=== PATIENT | male | born 1990 | race Caucasian/White ===

== ENCOUNTER → 2018-06-15 | Outpatient (CLI) | payer OTHER ==
--- NOTE | 2018-06-15 09:35 | MR ---
EXAMINATION TYPE: MR knee LT wo con DATE OF EXAM: 06/15/2018 COMPARISON: 08/04/2010 HISTORY: Left knee pain TECHNIQUE: Multiplanar, multisequence imaging of the left knee is performed without IV contrast. FINDINGS: MEDIAL MENISCUS: Anterior and posterior horns are intact without tear. LATERAL MENISCUS: Anterior and posterior horns are intact without tear. CRUCIATE LIGAMENTS: The anterior and posterior cruciate ligaments are intact and unremarkable. COLLATERAL LIGAMENTS: The medial collateral ligament and lateral collateral ligament complex are inta ct and unremarkable. EXTENSOR MECHANISM: Visualized quadriceps and patellar tendons are intact. EFFUSION: No significant suprapatellar joint effusion. POPLITEAL CYST: No popliteal/grewal cyst. TRICOMPARTMENT SPACES: Joint spaces preserved no evidence of significant arthritic changes. Visualize d cartilage is intact. BONE MARROW SIGNAL: No focal abnormal marrow signal is appreciated. OTHER: No additional significant abnormality is appreciated. IMPRESSION: 1. No acute process.
== END | disposition home or self-care (01) ==
LOC: RADMRIMAIN 06:08
PROVIDERS: ATTEND Orthopaedic Surgery
DX: M25.562 Pain in left knee (principal)

== ENCOUNTER → 2019-02-07 | Emergency (ER) | payer OTHER | LOC: EC 12:51 | DX: R00.0 Tachycardia, unspecified (principal); R06.02 Shortness of breath; Z53.21 Procedure and treatment not carried out due to patient leaving prior to being seen by health care provider | CPT/HCPCS: 93005; 99499 ==

== ENCOUNTER 2019-05-20 16:45 | Emergency (ER) | payer OTHER ==
[2019-05-20 17:28] VITALS: TEMP 98.1
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
[2019-05-20] MEDS ORDERED: KETOROLAC 60 MG/2 ML VIAL IM STA (20:02)
[2019-05-20 20:28] VITALS: BP 131/90; PULSE 66; RESP 16
== END 2019-05-20 20:28 | disposition home or self-care (01) ==
LOC: EC 16:45
DX: M54.2 Cervicalgia (principal); M54.6 Pain in thoracic spine; R51 Headache; F17.200 Nicotine dependence, unspecified, uncomplicated; V43.62XA Car passenger injured in collision with other type car in traffic accident, initial encounter; Y92.410 Unspecified street and highway as the place of occurrence of the external cause; Z53.20 Procedure and treatment not carried out because of patient's decision for unspecified reasons
CPT/HCPCS: 70450; 71046; 72125; 99284

== ENCOUNTER 2021-05-14 21:15 | Emergency (ER) | payer OTHER ==
[2021-05-14 21:34] VITALS: RESP 18; TEMP 98.2
[2021-05-14 22:47] LABS: ALT 26 U/L (4-49); AST 33 U/L (17-59); African American GFR (CKD) >90 (>60 ml/min/1.73 sqM); Albumin 4.5 g/dL (3.5-5.0); Alkaline Phosphatase 82 U/L (38-126); Anion Gap 11 mmol/L; Blood Urea Nitrogen 20 mg/dL (9-20); Calcium 9.6 mg/dL (8.4-10.2); Carbon Dioxide 22 mmol/L (22-30); Chloride 109 mmol/L (98-107); Glucose 102 mg/dL (74-99); Lipase 128 U/L (23-300); Non-African American GFR(CKD) >90 (>60 ml/min/1.73 sqM); Sodium 142 mmol/L (137-145); Total Bilirubin 0.2 mg/dL (0.2-1.3); Total Protein 7.3 g/dL (6.3-8.2)
[2021-05-14 22:58] LABS: Appearance,Urine Clear (Clear); Bilirubin,Urine Negative (Negative); Blood,Urine Negative (Negative); Color,Urine Yellow; Glucose,Urine (UA) Negative (Negative); Ketones,Urine Negative (Negative); Leukocyte Esterase,Urine Negative (Negative); Nitrite,Urine Negative (Negative); PH, Urine 5.5 (5.0-8.0); Protein,Urine Negative (Negative); Specific Gravity,Urine 1.029 (1.001-1.035); Urobilinogen,Urine <2.0 mg/dL (<2.0)
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
[2021-05-14 23:18] LABS: Basophils # (A) 0.1 k/uL (0-0.2); Basophils % (A) 1 %; Eosinophils # (A) 0.6 k/uL (0-0.7); Eosinophils % (A) 5 %; HCT 48.3 % (39.0-53.0); HGB 16.5 gm/dL (13.0-17.5); Lymphocytes # (A) 4.1 k/uL (1.0-4.8); Lymphocytes % (A) 29 %; MCH 28.5 pg (25.0-35.0); MCHC 34.2 g/dL (31.0-37.0); MCV 83.4 fL (80.0-100.0); Mean Platelet Volume 8.2; Monocytes # (A) 0.8 k/uL (0-1.0); Monocytes % (A) 6 %; Neutrophils % (A) 58 %; Platelet Count 218 k/uL (150-450); RBC 5.79 m/uL (4.30-5.90); RDW 13.5 % (11.5-15.5); WBC 13.9 k/uL (3.8-10.6)
[2021-05-14 23:23] LABS: Potassium 4.4 mmol/L (3.5-5.1)
[2021-05-14 23:29] LABS: Amylase 58 U/L (30-110)
--- NOTE | 2021-05-15 00:12 | ED ---
Abdominal Pain HPI - General Chief Complaint: Abdominal Pain Stated Complaint: abd pain Time Seen by Provider: 05/14/21 21:38 Source: patient Mode of arrival: ambulatory - History of Present Illness MD Complaint: abdominal pain Onset/Timin -: hour(s) Location: periumbilical Radiation: none Migration to: no migration Severity: moderate Quality: aching Consistency: constant Improves With: nothing Worsens With: nothing Associated Symptoms: nausea - Related Data Home Medications Medication Instructions Recorded Confirmed Cinnamon Bark [Cinnamon] 500 mg PO DAILY 05/14/21 05/14/21 Multivitamins, Thera [Multivitamin 1 tab PO DAILY 05/14/21 05/14/21 (formulary)] Niacin 500 mg PO DAILY 05/14/21 05/14/21 Previous Rx's Medication Instructions Recorded Acetaminophen-Codeine 300-30mg 1 tab PO Q4H PRN #16 tablet 05/15/21 [Tylenol w/codeine #3] Amoxicillin/Potassium Clav 1 tab PO Q12HR 1 Days #14 tab 05/15/21 [Augmentin 875-125 Tablet] Allergies Allergy/AdvReac Type Severity Reaction Status Date / Time No Known Allergies Allergy Verified 05/14/21 21:54 Review of Systems ROS Statement: Those systems with pertinent positive or pertinent negative responses have been documented in the HPI. ROS Other: All systems not noted in ROS Statement are negative. Constitutional: Denies: fever, chills Respiratory: Denies: cough, dyspnea Cardiovascular: Denies: chest pain, palpitations Gastrointestinal: Reports: abdominal pain, nausea. Denies: vomiting, diarrhea, constipation, melena, hematochezia Genitourinary: Denies: dysuria, frequency, hematuria, testicular pain, testicular mass Musculoskeletal: Denies: back pain Skin: Denies: rash Neurological: Denies: headache, weakness Past Medical History Past Medical History: No Reported History History of Any Multi-Drug Resistant Organisms: None Reported Past Surgical History: Orthopedic Surgery Additional Past Surgical History / Comment(s): kidney stones with lithotripsy Past Psychological History: No Psychological Hx Reported Smoking Status: Current every day smoker Past Alcohol Use History: Rare Past Drug Use History: None Reported Course Vital Signs 05/14/21 21:30 Temperature 98.2 F Pulse Rate 79 Respiratory 18 Rate Blood Pressure 102/67 O2 Sat by Pulse 98 Oximetry Medical Decision Making - Lab Data Result diagrams: 05/14/21 22:27 05/14/21 22:27 Lab Results 05/14/21 05/14/21 05/14/21 Range/Units 22:27 22:27 22:27 WBC 13.9 H (3.8-10.6) k/uL RBC 5.79 (4.30-5.90) m/uL Hgb 16.5 (13.0-17.5) gm/dL Hct 48.3 (39.0-53.0) % MCV 83.4 (80.0-100.0) fL MCH 28.5 (25.0-35.0) pg MCHC 34.2 (31.0-37.0) g/dL RDW 13.5 (11.5-15.5) % Plt Count 218 (150-450) k/uL MPV 8.2 Neutrophils % 58 % Lymphocytes % 29 % Monocytes % 6 % Eosinophils % 5 % Basophils % 1 % Neutrophils # 8.0 H (1.3-7.7) k/uL Lymphocytes # 4.1 (1.0-4.8) k/uL Monocytes # 0.8 (0-1.0) k/uL Eosinophils # 0.6 (0-0.7) k/uL Basophils # 0.1 (0-0.2) k/uL Sodium 142 (137-145) mmol/L Potassium 4.4 (3.5-5.1) mmol/L Chloride 109 H (98-107) mmol/L Carbon Dioxide 22 (22-30) mmol/L Anion Gap 11 mmol/L BUN 20 (9-20) mg/dL Creatinine 0.68 (0.66-1.25) mg/dL Est GFR (CKD-EPI)AfAm >90 (>60 ml/min/1.73 sqM) Est GFR (CKD-EPI)NonAf >90 (>60 ml/min/1.73 sqM) Glucose 102 H (74-99) mg/dL Calcium 9.6 (8.4-10.2) mg/dL Total Bilirubin 0.2 (0.2-1.3) mg/dL AST 33 (17-59) U/L ALT 26 (4-49) U/L Alkaline Phosphatase 82 (38-126) U/L Total Protein 7.3 (6.3-8.2) g/dL Albumin 4.5 (3.5-5.0) g/dL Amylase 58 (30-110) U/L Lipase 128 (23-300) U/L Urine Color Yellow Urine Appearance Clear (Clear) Urine pH 5.5 (5.0-8.0) Ur Specific [place] 1.029 (1.001-1.035) Urine Protein Negative (Negative) Urine Glucose (UA) Negative (Negative) Urine Ketones Negative (Negative) Urine Blood Negative (Negative) Urine Nitrite Negative (Negative) Urine Bilirubin Negative (Negative) Urine Urobilinogen <2.0 (<2.0) mg/dL Ur Leukocyte Esterase Negative (Negative) Disposition Clinical Impression: Abdominal pain Disposition: HOME SELF-CARE Condition: Good Instructions (If sedation given, give patient instructions): Umbilical Hernia (ED), Abdominal Pain (ED) Additional Instructions: As we discussed, there is some fluid in the pelvis that is concerning. If you are not feeling well by tomorrow, you should have your abdomen rechecked. Return immediately if you develop any of the symptoms that we discussed or worse in any way. If you continue to feel better be certain to finish the course of antibiotics and follow-up as we discussed. Prescriptions: Amoxicillin/Potassium Clav [Augmentin 875-125 Tablet] 1 tab PO Q12HR 1 Days #14 tab Acetaminophen-Codeine 300-30mg [Tylenol w/codeine #3] 1 tab PO Q4H PRN #16 tablet PRN Reason: Pain Is patient prescribed a controlled substance at d/c from ED?: Yes When asked, does pt state using other controlled substances?: No If prescribed controlled substance>3 days was MAPS reviewed?: Prescribed <3 Days If opioid is for acute pain is fill amount 7 days or less?: Yes If Rx opioid, was Start Talking consent form obtained?: Yes Referrals: Lisbet Tapia MD [Primary Care Provider] - 1-2 days Arpita Ryder DO [Doctor of Osteopathic Medicine] - 1-2 days
[2021-05-15] MEDS ORDERED: AMPICILLIN-SULBACTAM 3 GM in SODIUM CHLORIDE 0.9% 100 ML IVPB STA (00:13)
[2021-05-15 01:08] VITALS: BP 109/71; PULSE 76
== END 2021-05-15 01:04 | disposition home or self-care (01) ==
LOC: EC 21:15
DX: R10.33 Periumbilical pain (principal); R11.0 Nausea; F17.200 Nicotine dependence, unspecified, uncomplicated
CPT/HCPCS: 36415; 80053; 82150; 83690; 85025; 81003; 74176; 99284; 96365; J0295

== ENCOUNTER 2023-12-08 14:15 | Day surgery (SDC) | payer OTHER ==
[2023-12-06 14:18] VITALS: BMI 35.5
[2023-12-08] MEDS: LACTATED RINGERS 1,000 ML IV SCH (14:30)
[2023-12-08 14:44] VITALS: TEMP 97.5
[2023-12-08] MEDS ORDERED: PROPOFOL 10 MG/ML 20 ML VIAL IV ONE (15:11)
[2023-12-08] MEDS ORDERED: LIDOCAINE 1% INJ 10MG/ML (20 ML MDV) ONE (15:11)
--- NOTE | 2023-12-08 15:24 | P.PCN ---
Date of Procedure: 12/08/23 Procedure(s) Performed: BRIEF HISTORY: Patient is a 33-year-old, pleasant, white male scheduled for an upper endoscopy as a part of evaluation of long-standing history of GERD for the last 15 years duration. Lately has been having intermittent left upper quadrant abdominal pain. He remains on omeprazole 20 mg daily.. PROCEDURE PERFORMED: Esophagogastroduodenoscopy. With biopsy PREOPERATIVE DIAGNOSIS: GERD and intermittent left upper quadrant abdominal pain. IV sedation per anesthesia. PROCEDURE: After informed consent was obtained, the patient was brought into the endoscopy unit. IV sedation was administered by Anesthesia under continuous monitoring. Initially the Olympus GIF-140 video endoscope was inserted into the mouth. Esophagus intubated without any difficulty. It was gradually advanced into the stomach and duodenum and carefully examined. The bulb and the second part of the duodenum appeared normal. The scope at this time was withdrawn to the stomach, adequately insufflated with air, and upon careful examination, mucosa of the antrum, body, cardia and the fundus appeared normal. The scope was then withdrawn into the esophagus. Small hiatal hernia noted. The GE junction was located at 44 cm from the incisors. The distal esophageal stricture identified. A very few erosions in the distal esophagus consistent with LA grade B reflux esophagitis. Also there was a 3 mm island of Mejia's-appearing mucosa in the distal esophagus which was biopsied. The rest of the esophagus appeared normal and the patient tolerated the procedure well. IMPRESSION: 1. Small hiatal hernia. 2. Early distal esophageal stricture 3. Erosions in the distal esophagus consistent with LA grade B reflux esophagitis and questionable short segment Mejia's esophagus. RECOMMENDATIONS: The findings of this examination were discussed with the patient as well as his family. Follow with the biopsy results. He was advised to increase omeprazole to 20 mg twice daily for 3 months and then decrease it to once daily as a maintenance dose.. He was educated about antireflux measures.
[2023-12-08 15:58] VITALS: BP 145/83; PULSE 83; RESP 17
== END 2023-12-08 15:58 | disposition home or self-care (01) ==
LOC: ORWHC2ENDO 14:15
PROVIDERS: ATTEND Internal Medicine Gastroenterology
DX: K21.00 Gastro-esophageal reflux disease with esophagitis, without bleeding (principal); K44.9 Diaphragmatic hernia without obstruction or gangrene; K22.2 Esophageal obstruction; F17.210 Nicotine dependence, cigarettes, uncomplicated; Z79.899 Other long term (current) drug therapy; Z88.8 Allergy status to other drugs, medicaments and biological substances
CPT/HCPCS: 88305; 43239; J2001; J2704

== ENCOUNTER 2024-12-02 05:46 | Day surgery (SDC) | payer OTHER ==
[2024-11-28 10:48] VITALS: BMI 34.2
[~2024-12-02 05:46] MED LIST: LIDOCAINE 1% (10MG/ML) FOR IV START INTRADERMA PRN
[2024-12-02 06:20] VITALS: TEMP 97.3
[2024-12-02] MEDS: IV FLUID CONTINUATION 1,000 ML IV ONE ×2 (06:28→08:56)
[2024-12-02] MEDS: LACTATED RINGERS 1,000 ML IV SCH (06:28)
[2024-12-02] MEDS: ACETAMINOPHEN TAB 500 MG TAB PO PRN (06:51)
[2024-12-02] MEDS: ONDANSETRON 4 MG/2 ML VIAL IVP ONE (06:51)
[2024-12-02] MEDS: MIDAZOLAM 2 MG/2 ML VIAL IV ONE (06:58)
[2024-12-02] MEDS: HEPARIN SODIUM,PORCINE 5,000 UNIT/ML 1 ML VIAL SQ PRN (07:14)
--- NOTE | 2024-12-02 07:15 | P.ANPRN ---
Procedure Note - Anesthesia - Nerve Block Performed Bilateral Erector Spinae Single Time Out Performed: Yes Date of Procedure: 12/02/24 Procedure Start Time: 07:00 Procedure Stop Time: 07:05 Location of Patient: PreOp Indication: Acute Post-Operative Pain, Analgesia, Requested by Surgeon Sedation Type: Sedate with meaningful contact maintained Preparation: Sterile Prep Position: Prone Catheter: None Needle Types: Pajunk Needle Gauge: 21 Ultrasound used to visualize needle placement: Yes Ultrasound used to observe medication spread: Yes Injectate: 0.5% Ropivacaine (see comment for volume) (Ropiv 20ml, Needle level I12---Hnig side) Blood Aspirated: No Pain Paresthesia on Injection Noted: No Resistance on Injection: Normal Image Stored and Saved: Yes Events: Uneventful and Well Tolerated
[2024-12-02] MEDS ORDERED: PROPOFOL 10 MG/ML 20 ML VIAL IV ONE (07:27)
[2024-12-02] MEDS ORDERED: HYDROmorphone (PF) 1 MG/ML ONE (07:27)
[2024-12-02] MEDS ORDERED: ROCURONIUM 10 MG/ML (5 ML VIAL) IV ONE (07:27)
[2024-12-02] MEDS ORDERED: GLYCOPYRROLATE 0.2 MG/ML 2 ML VIAL ONE (07:27)
[2024-12-02] MEDS ORDERED: LIDOCAINE 4% LTA KIT (4 ML) TOPICAL ONE (07:27)
[2024-12-02] MEDS ORDERED: NEOSTIGMINE 1 MG/ML 10 ML VIAL ONE (07:27)
[2024-12-02] MEDS ORDERED: LIDOCAINE 1% INJ 10MG/ML (20 ML MDV) ONE (07:27)
[2024-12-02] MEDS ORDERED: SUCCINYLCHOLINE CHLORIDE 200 MG/10 ML VIAL IV ONE (07:27)
[2024-12-02] MEDS ORDERED: ROPIVACAINE 5 MG/ML 30 ML VIAL ONE (07:27)
[2024-12-02] MEDS ORDERED: MIDAZOLAM 2 MG/2 ML VIAL ONE (07:27)
[2024-12-02] MEDS ORDERED: fentaNYL (PF) 50 MCG/ML 2 ML AMP ONE (07:27)
--- NOTE | 2024-12-02 07:33 | P.HPADDEND ---
H&P Addendum H&P Addendum Date: 12/02/24 Please refer to recent history and physical from the office. Patient did come to the ER apparently last week with some pain. Had a portion of the hernia reduced and he was discharged home comfortably. No change in bowel habits. No nausea or vomiting. States he quit smoking.
[2024-12-02] MEDS: BUPIVACAINE (PF) 0.25% 30 ML VIAL SQ ONE ×3 (07:54→07:59)
[2024-12-02 09:14] VITALS: RESP 16
--- NOTE | 2024-12-02 09:18 | P.OP ---
Date of Procedure: 12/02/24 Procedure(s) Performed: PREOPERATIVE DIAGNOSIS: Incarcerated umbilical hernia POSTOPERATIVE DIAGNOSIS: Same PROCEDURE: Open repair incarcerated umbilical hernia with mesh SURGEON: Dr. Norris ANESTHESIA: General EBL: 25 cc OPERATIVE PROCEDURE DETAILS: The patient was placed in the operating table in the supine position. A curvilinear supraumbilical incision was made using the scalpel. The subcutaneous tissues were dissected bluntly and with cautery. The hernia sac was identified. The umbilical attachments to the fascia were divided using electrocautery. The hernia sac was excised. The defect in the peritoneum was closed using a running locking 2-0 Vicryl stitch. The defect in the fascia measured 3.5 x 1.5 cm. The fat overlying the fascia was dissected. A second defect measuring 3 mm in size was identified in the midline superiorly. This was closed using a [id number] 0 Ethibond stitch. Our preperitoneal mesh just covered at that location. No additional defects were seen. The preperitoneal space was then dissected using blunt dissection and electrocautery. The 6.4 cm ventral ex mesh was placed beneath the fascia and sutured in place using trans-fascial 0 Ethibond sutures. The defect was closed using interrupted vest over pants 0 Ethibond mattress sutures. The subcutaneous tissues were reapproximated using inverted 2-0 & 3-0 Vicryl sutures. The umbilicus was tacked back down to the fascia using a 2-0 Vicryl suture. The skin was closed using 4-0 Monocryl sutures. Skin glue and sterile dressings were then applied. HERNIA CHARACTERISTICS: Length: 1.5 cm Width: 3.5 cm Type: Incarcerated umbilical TYPE OF MESH USED: 6.4 cm Ventralex LOCATION OF MESH: Sublay FIXATION: 0 Ethibond PREOPERATIVE DISCUSSION ON SMOKING CESSASTION: Yes PREOPERATIVE DISCUSSION ON MORBID OBESITY: Yes PREOPERATIVE DISCUSSION ON APPROPRIATE USE OF NARCOTIC USE: Yes PREOPERATIVE EDUCATION: Multi Modal, Smoking Cessation and Weight Loss with BMI over 35. DISPOSITION: Stable to recovery room
[2024-12-02] MEDS: HYDROmorphone 0.5 MG/0.5 ML SYRINGE IVP PRN (09:35)
[2024-12-02] MEDS: hydrALAZINE HCL 20 MG/ML 1 ML VIAL IVP STA (09:48)
[2024-12-02] MEDS: fentaNYL (PF) 50 MCG/ML 2 ML AMP IVP STA (10:08)
[2024-12-02] MEDS: METOPROLOL TARTRATE 5 MG/5 ML VIAL IVP STA (10:24)
[2024-12-02 11:16] VITALS: BP 131/82; PULSE 98
[2024-12-02] MEDS ORDERED: IBUPROFEN 600 MG TAB PO SCH (12:15)
[2024-12-02] MEDS ORDERED: ACETAMINOPHEN TAB 325 MG TAB PO SCH (14:15)
== END 2024-12-02 12:05 | disposition home or self-care (01) ==
LOC: OR 05:46
PROVIDERS: ATTEND Surgery
DX: K42.0 Umbilical hernia with obstruction, without gangrene (principal); K21.9 Gastro-esophageal reflux disease without esophagitis; F41.9 Anxiety disorder, unspecified; R00.2 Palpitations; Z87.891 Personal history of nicotine dependence; Z89.522 Acquired absence of left knee; Z89.232 Acquired absence of left shoulder; Z88.8 Allergy status to other drugs, medicaments and biological substances; Z79.899 Other long term (current) drug therapy
CPT/HCPCS: 64999; 49592; C1781; J2250; J0330; J0360; J1644; J2710; J0690; J2405; J2003; J3010; J1171 ×2; J2795; J2704; J0665; J1596; 88302

== ENCOUNTER 2025-01-06 07:20 | Emergency (ER) | payer OTHER ==
[2025-01-06 07:31] VITALS: BP 118/78; PULSE 101; RESP 18; TEMP 97.9
--- NOTE | 2025-01-06 07:39 | ED ---
General Adult HPI - General Chief complaint: Upper Respiratory Infection Stated complaint: Swelling in throat Time Seen by Provider: 01/06/25 07:21 Source: patient, RN notes reviewed, old records reviewed Mode of arrival: ambulatory Limitations: no limitations - History of Present Illness Initial comments: 34-year-old male presenting for evaluation of sore throat, productive cough. Symptoms began 2 days prior. He has had myalgia and subjective fever and chills. Patient otherwise healthy. No vomiting or diarrhea. - Related Data Home Medications Medication Instructions Recorded Confirmed Multivit-Mins/Iron/Folic/Lycop 1 tab PO DAILY 11/24/24 12/02/24 [Centrum Men's Tablet] Omeprazole Magnesium [PriLOSEC OTC] 20 mg PO DAILY PRN 11/24/24 12/02/24 Escitalopram [Lexapro] 10 mg PO DAILY 11/28/24 12/02/24 Previous Rx's Medication Instructions Recorded oxyCODONE HCL [OxyIR] 5 mg PO Q6H PRN 3 Days #6 tab 12/02/24 Albuterol Inhaler [Ventolin Hfa 1 - 2 puff INHALATION Q4HR PRN #1 01/06/25 Inhaler] each Allergies Allergy/AdvReac Type Severity Reaction Status Date / Time dexamethasone Allergy Severe affected Verified 01/06/25 07:30 muscles-felt like he had some paralysis Review of Systems ROS Statement: Those systems with pertinent positive or pertinent negative responses have been documented in the HPI. ROS Other: All systems not noted in ROS Statement are negative. 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 Past Anesthesia/Blood Transfusion Reactions: No Reported Reaction Past Psychological History: No Psychological Hx Reported Smoking Status: Current every day smoker Past Alcohol Use History: None Reported Past Drug Use History: None Reported - Past Family History Mother Additional Family Medical History / Comment(s): breast cancer General Exam Limitations: no limitations General appearance: alert, in no apparent distress Head exam: Present: atraumatic, normocephalic Eye exam: Present: normal appearance, PERRL ENT exam: Present: normal exam. Absent: normal oropharynx (Pharyngeal erythema and bilateral tonsillar swelling) Respiratory exam: Present: wheezes. Absent: respiratory distress, rhonchi, accessory muscle use, decreased breath sounds Cardiovascular Exam: Present: regular rate, normal rhythm GI/Abdominal exam: Present: soft. Absent: distended, tenderness Neurological exam: Present: alert, oriented X3 Psychiatric exam: Present: normal affect, normal mood Skin exam: Present: warm, dry, intact Course Vital Signs 01/06/25 07:27 Temperature 97.9 F Pulse Rate 101 H Respiratory 18 Rate Blood Pressure 118/78 O2 Sat by Pulse 95 Oximetry Medical Decision Making - Medical Decision Making Was pt. sent in by a medical professional or institution (, TAMIA, CONSERVATION AGENT, urgent care, hospital, or alf...) When possible be specific @ -No Did you speak to anyone other than the patient for history (EMS, parent, family, police, friend...)? What history was obtained from this source @ -No Did you review nursing and triage notes (agree or disagree)? Why? @ -I reviewed and agree with nursing and triage notes Were old charts reviewed (outside hosp., previous admission, EMS record, old EKG, old radiological studies, urgent care reports/EKG's, alf records)? Report findings @ -No old charts were reviewed Differential Diagnosis viral upper respiratory infection, strep pharyngitis, bakari-tonsillar abscess, pneumonia, bronchitis EKG interpreted by me (3pts min.). @ -As above X-rays interpreted by me (1pt min.). @ -None done CT interpreted by me (1pt min.). @ -None done U/S interpreted by me (1pt. min.). @ -None done What testing was considered but not performed or refused? (CT, X-rays, U/S, labs)? Why? @ -None What meds were considered but not given or refused? Why? @ -None Did you discuss the management of the patient with other professionals (professionals i.e. TAMIA Angulo, CONSERVATION AGENT, lab, RT, psych nurse, social media senior associate, chainsaw mechanic, teacher, sustainability officer, residential case manager)? Give summary @ -No Was smoking cessation discussed for >3mins.? @ -No Was critical care preformed (if so, how long)? @ -No Were there social determinants of health that impacted care today? How? (Homelessness, low income, unemployed, alcoholism, drug addiction, transportation, low edu. Level, literacy, decrease access to med. care, assisted, rehab)? @ -No Was there de-escalation of care discussed even if they declined (Discuss DNR or withdrawal of care, Hospice)? DNR status @ -No What co-morbidities impacted this encounter? (DM, HTN, Smoking, COPD, CAD, Cancer, CVA, ARF, Chemo, Hep., AIDS, mental health diagnosis, sleep apnea, morbid obesity)? @ -Current smoker Was patient admitted / discharged? Hospital course, mention meds given and route, prescriptions, significant lab abnormalities, going to OR and other pertinent info. @ -[34-year-old male, well-appearing with stable vitals with upper respiratory symptoms and pharyngeal erythema tonsillar swelling. Viral panel as well as strep PCR were obtained in the emergency department. Undiagnosed new problem with uncertain prognosis? @ -No Drug Therapy requiring intensive monitoring for toxicity (Heparin, Nitro, Insulin, Cardizem)? @ -No Were any procedures done? @ -No Diagnosis/symptom? @ -Default Acute, or Chronic, or Acute on Chronic? @ -Default Uncomplicated (without systemic symptoms) or Complicated (systemic symptoms)? @ -Default Side effects of treatment? @ -No Exacerbation, Progression, or Severe Exacerbation? @ -No Poses a threat to life or bodily function? How? (Chest pain, [place], [place], pneumonia, PE, COPD, DKA, ARF, appy, cholecystitis, CVA, Diverticulitis, Homicidal, Suicidal, threat to staff... and all critical care pts) @ -No - Lab Data Lab Results 01/06/25 01/06/25 Range/Units 07:35 07:39 Influenza Type A (PCR) Not Detected (Not Detectd) Influenza Type B (PCR) Not Detected (Not Detectd) RSV (PCR) Not Detected (Not Detectd) SARS-CoV-2 (PCR) Not Detected (Not Detectd) Group A Strep (PCR) NOT DETECTED (Not Detectd) Disposition Clinical Impression: Upper respiratory tract infection Disposition: HOME SELF-CARE Condition: Good Instructions (If sedation given, give patient instructions): Upper Respiratory Infection (ED) Prescriptions: Albuterol Inhaler [Ventolin Hfa Inhaler] 1 - 2 puff INHALATION Q4HR PRN #1 each PRN Reason: Shortness Of Breath Is patient prescribed a controlled substance at d/c from ED?: No Referrals: Lisbet Tapia MD [Primary Care Provider] - 1-2 days Time of Disposition: 07:39
[2025-01-06 08:34] LABS: Influenza A Not Detected (Not Detectd); Influenza B Not Detected (Not Detectd); RSV Not Detected (Not Detectd)
== END 2025-01-06 07:51 ==
LOC: EC 07:20
DX: J06.9 Acute upper respiratory infection, unspecified (principal); F17.200 Nicotine dependence, unspecified, uncomplicated; Z88.8 Allergy status to other drugs, medicaments and biological substances
CPT/HCPCS: 87636; 87651; 99283